=== PATIENT | female | born 1985 | race Asian ===

== ENCOUNTER 2022-11-05 15:14 | Emergency (ER) | payer OTHER ==
[2022-11-05] MEDS ORDERED: ACETAMINOPHEN 325 MG TABLET (FP) PO ONE (15:23)
[2022-11-05] MEDS ORDERED: ACETAMINOPHEN 325 MG TABLET (FP) ONE (15:28)
[2022-11-05 15:33] VITALS: RESP 18; BMI 21.9
[2022-11-05 17:27] VITALS: BP 102/65; PULSE 56; TEMP 98.6
== END 2022-11-05 17:30 | disposition home or self-care (01) ==
LOC: FER 15:14
DX: S06.0X0A Concussion without loss of consciousness, initial encounter (principal); M25.561 Pain in right knee; W01.198A Fall on same level from slipping, tripping and stumbling with subsequent striking against other object, initial encounter; Y92.219 Unspecified school as the place of occurrence of the external cause
CPT/HCPCS: 70450-TC; 73560-TC-RT-FY; 81025; 99284-25

== ENCOUNTER 2023-06-05 09:24 | Emergency (ER) | payer OTHER ==
[2023-06-05] MEDS ORDERED: IBUPROFEN 600 MG TABLET (FP) PO ONE (09:58)
[2023-06-05 09:59] VITALS: BMI 22.1
[2023-06-05] MEDS: IBUPROFEN 600 MG TABLET (FP) PO ONE (10:00)
[2023-06-05 10:48] VITALS: BP 107/68; PULSE 99; RESP 16
[2023-06-05] MEDS ORDERED: ACETAMINOPHEN 500 MG TABLET (FP) ONE (10:54)
[2023-06-05] MEDS: ACETAMINOPHEN 500 MG TABLET (FP) PO ONE (11:05)
[2023-06-05 11:51] VITALS: TEMP 99.9
[2023-06-05 12:24] LABS: THROAT:GRP A STREP DETECTED (NOTDETECTED)
== END 2023-06-05 11:55 | disposition home or self-care (01) ==
LOC: FER 09:24
DX: R05.9 Cough, unspecified (principal); R09.81 Nasal congestion; J02.9 Acute pharyngitis, unspecified; R50.9 Fever, unspecified; J06.9 Acute upper respiratory infection, unspecified; R52 Pain, unspecified; R51.9 Headache, unspecified; Z20.822 Contact with and (suspected) exposure to COVID-19
CPT/HCPCS: 0241U-QW; 87651; 99283-25